=== PATIENT | male | born 1960 | race Caucasian/White ===

== ENCOUNTER 2018-12-20 14:23 | Inpatient (IN) | payer BC, OTHER ==
--- NOTE | 2018-12-20 14:47 | ER Document Report ---
ED Medical Screen (RME) - General Chief Complaint: Shortness Of Breath Stated Complaint: TROUBLE BREATHING Time Seen by Provider: 12/20/18 14:40 Mode of Arrival: Ambulatory Information source: Patient, [facility] Records Notes: 58-year-old male with hypertension, COPD, "kidney issues", lower extremity edema presents with complaint of cough and shortness of breath. Patient states he has had a productive cough for 4 days but shortness of breath for several months. Patient smokes 2 packs of cigarettes per day for greater than 20 years. I have greeted and performed a rapid initial assessment of this patient. A comprehensive ED assessment and evaluation of the patient, analysis of test results and completion of medical decision making process we will be contacted by additional ED providers. PHYSICAL EXAMINATION: Vital signs reviewed-hypoxic GENERAL: Well-appearing, well-nourished and in no acute distress. LUNGS: Diminished breath sounds in all lung jacinto Musculoskeletal: Normal range of motion NEUROLOGICAL: Normal speech, normal gait. PSYCH: Normal mood, normal affect. SKIN: Warm, Dry, normal turgor, no rashes or lesions noted. - HPI Onset: Last week Onset/Duration: Persistent Quality of pain: No pain Severity: None Pain Level: Denies Associated Symptoms: Cough (productive), Leg swelling, Shortness of breath Exacerbated by: Coughing Relieved by: Denies Similar symptoms previously: Yes Recently seen / treated by doctor: Yes - Related Data Smoking: Cigarettes Frequency of alcohol use: None Drug Abuse: None Allergies/Adverse Reactions: Penicillins Allergy (Intermediate, Verified 07/17/14 07:35) Hives Past Medical History - Past Medical History Cardiac Medical History: Reports: Hx Hypertension - Not. office([place])re:BP 150/98;No orders at this time.Pt takes no BP meds. Denies: Hx Coronary Artery Disease, Hx Heart Attack Pulmonary Medical History: Denies: Hx Asthma, Hx Bronchitis, Hx COPD, Hx Pneumonia Neurological Medical History: Denies: Hx Cerebrovascular Accident, Hx Seizures Musculoskeltal Medical History: Denies Hx Arthritis Past Surgical History: Denies: Hx Pacemaker - Immunizations Hx Diphtheria, Pertussis, Tetanus Vaccination: Yes - 2006 Physical Exam - Vital signs Vitals: Temp Pulse Resp BP Pulse Ox 98.4 F 100 16 129/65 H 91 L 12/20/18 14:37 12/20/18 14:37 12/20/18 14:37 12/20/18 14:37 12/20/18 14:37 Course - Vital Signs Vital signs: Temp Pulse Resp BP Pulse Ox 98.4 F 100 16 129/65 H 91 L 12/20/18 14:37 12/20/18 14:37 12/20/18 14:37 12/20/18 14:37 12/20/18 14:37
[2018-12-20] MEDS ORDERED: IPRATROPIUM/ALBUTEROL 0.5-2.5 MG/3 ML AMPUL NEB ONE ×2 (14:49→17:24)
[2018-12-20 15:22] LABS: ABSOLUTE LYMPHOCYTES (AUTO) 0.7 10^3/uL (0.5-4.7); ABSOLUTE MONOCYTES (AUTO) 1.3 10^3/uL (0.1-1.4); ABSOLUTE NEUT (AUTO) 5.9 10^3/uL (1.7-8.2); BASOPHILS % (AUTO) 0.3 % (0-2); HEMOGLOBIN 16.3 g/dL (13.5-17.0); LYMPHOCYTES % (AUTO) 8.5 % (13-45); MEAN CORPUSCULAR HEMOGLOBIN 30.6 pg (27.0-33.4); MEAN CORPUSCULAR HGB CONC 34.7 g/dL (32.0-36.0); MEAN CORPUSCULAR VOLUME 88 fl (80-97); MONOCYTES % (AUTO) 16.2 % (3-13); PLATELET COUNT 133 10^3/uL (150-450); RED BLOOD COUNT 5.34 10^6/uL (4.35-5.55); RED CELL DISTRIBUTION WIDTH 13.6 % (11.5-14.0); TOTAL CELLS COUNTED % (AUTO) 100 %; VENOUS BLOOD BASE EXCESS 4.2 mmol/L; VENOUS BLOOD HCO3 31.6 mmol/L (20-32); VENOUS BLOOD PCO2 56.9 mmHg (35-63); VENOUS BLOOD PH 7.36 (7.30-7.42); WHITE BLOOD COUNT 7.9 10^3/uL (4.0-10.5)
[2018-12-20 15:40] LABS: ALANINE AMINOTRANSFERASE 52 U/L (21-72); ALBUMIN 4.3 g/dL (3.5-5.0); ALKALINE PHOSPHATASE 64 U/L (38-126); ANION GAP 14 (5-19); ASPARTATE AMINO TRANSFERASE 113 U/L (17-59); BILIRUBIN,DIRECT 0.3 mg/dL (0.0-0.4); BILIRUBIN,TOTAL 0.6 mg/dL (0.2-1.3); BLOOD UREA NITROGEN 27 mg/dL (7-20); CARBON DIOXIDE 29 mmol/L (22-30); CHLORIDE 88 mmol/L (98-107); GLUCOSE 146 mg/dL (75-110); POTASSIUM 4.2 mmol/L (3.6-5.0); SODIUM 130.6 mmol/L (137-145); TOTAL PROTEIN 6.9 g/dL (6.3-8.2)
--- NOTE | 2018-12-20 16:38 | RADIOLOGY REPORT (SQ) ---
EXAM DESCRIPTION: CHEST 2 VIEWS COMPLETED DATE/TIME: 12/20/2018 4:15 pm REASON FOR STUDY: Shortness of breath, hypoxia COMPARISON: 11/27/2011. EXAM PARAMETERS: NUMBER OF VIEWS: two views TECHNIQUE: Digital Frontal and Lateral radiographic views of the chest acquired. RADIATION DOSE: NA LIMITATIONS: none FINDINGS: LUNGS AND PLEURA: No opacities, masses or pneumothorax. No pleural effusion. MEDIASTINUM AND HILAR STRUCTURES: No masses or contour abnormalities. HEART AND VASCULAR STRUCTURES: Heart normal size. No evidence for failure. BONES: No acute findings. HARDWARE: None in the chest. OTHER: No other significant finding. IMPRESSION: NO ACUTE RADIOGRAPHIC FINDING IN THE CHEST. TECHNICAL DOCUMENTATION: JOB ID: [id number] [employer]- All Rights Reserved Reading location - IP/workstation name: [email or web address]
[2018-12-20] MEDS ORDERED: NORMAL SALINE 1000 ML 1,000 ML IV ONE (17:14)
[2018-12-20] MEDS ORDERED: PREDNISONE 20 MG TABLET PO ONE ×2 (17:24→23:00)
[2018-12-20] MEDS ORDERED: ALBUTEROL SULFATE 0.083% NEB 2.5 MG/3 ML AMPUL NEB ONE ×3 (17:25→21:52)
--- NOTE | 2018-12-20 18:00 | EKG REPORT ---
SEVERITY:- ABNORMAL ECG - SINUS RHYTHM PROBABLE ANTEROSEPTAL INFARCT, AGE INDETERM : Confirmed by: Arya Ruby MD 20-Dec-2018 17:58:55
[2018-12-20 19:48] LABS: ARTERIAL BLOOD H2CO3 1.34 mmol/L (1.05-1.35); ARTERIAL BLOOD HCO3 27.3 mmol/L (20-24); ARTERIAL BLOOD O2 SATURATION 85.8 % (94-98); ARTERIAL BLOOD PCO2 44.5 mmHg (35-45); ARTERIAL BLOOD PH 7.41 (7.35-7.45); ARTERIAL BLOOD PO2 50.5 mmHg (80-100); ARTERIAL BLOOD TOTAL CO2 28.6 mmol/L (23-27)
[2018-12-20 19:50] LABS: ARTERIAL BLOOD FIO2 ROOM AIR
--- NOTE | 2018-12-20 20:24 | ER Document Report ---
ED Respiratory Problem - General Mode of Arrival: Ambulatory Information source: Patient - HPI Patient complains to provider of: Chest pain, COPD, Cough, Short of breath Onset: Other - 4 days Duration: Worse/persistent Quality of pain: Achy Pain Level: 2 Context: Hx COPD Cough: Productive Sputum color: White At home treatment: Bronchodilators Associated symptoms: Chest pain/discomfort, Cough, Short of breath. denies: Bloody cough, Fever <KE YDER - Last Filed: 12/20/18 20:20> <HOPE SHEPARD - Last Filed: 12/20/18 22:02> - General Chief Complaint: Shortness Of Breath Stated Complaint: TROUBLE BREATHING Time Seen by Provider: 12/20/18 14:40 Primary Care Provider: GUILLERMO VASQUEZ MD [Primary Care Provider] - Follow up as needed Notes: Patient presents complaining of shortness of breath for several months but reports productive cough for the past 4 days. Patient does complain of some chest discomfort with cough only. Patient denies any fever. Patient does have a history of COPD. Patient does continue to smoke 2 packs/day. (KE DYER) - Related Data Allergies/Adverse Reactions: Penicillins Allergy (Intermediate, Verified 12/20/18 16:49) Hives Past Medical History - General Information source: Patient, [facility] Records - Social History Smoking Status: Current Every Day Smoker Chew tobacco use (# tins/day): No Frequency of alcohol use: None Drug Abuse: None Occupation: HV[employer] Family History: Reviewed & Not Pertinent Patient has suicidal ideation: No Patient has homicidal ideation: No - Past Medical History Cardiac Medical History: Reports: Hx Hypercholesterolemia, Hx Hypertension - Not. office([place])re:BP 150/98;No orders at this time.Pt takes no BP meds. Denies: Hx Coronary Artery Disease, Hx Heart Attack Pulmonary Medical History: Reports: Hx COPD Neurological Medical History: Denies: Hx Cerebrovascular Accident, Hx Seizures Renal/ Medical History: Denies: Hx Peritoneal Dialysis Musculoskeletal Medical History: Denies Hx Arthritis Past Surgical History: Reports: Other - cyst removal. Denies: Hx Pacemaker - Immunizations Hx Diphtheria, Pertussis, Tetanus Vaccination: Yes - 2006 <KE DYER - Last Filed: 12/20/18 20:20> Review of Systems - Review of Systems Constitutional: No symptoms reported EENT: No symptoms reported Cardiovascular: Chest pain Respiratory: Cough, Short of breath, Wheezing Gastrointestinal: No symptoms reported Genitourinary: No symptoms reported Male Genitourinary: No symptoms reported Musculoskeletal: No symptoms reported. denies: Back pain Skin: No symptoms reported Hematologic/Lymphatic: No symptoms reported Neurological/Psychological: No symptoms reported <MANISHAKE Valadez - Last Filed: 12/20/18 20:20> Physical Exam - General General appearance: Appears well, Alert In distress: None - HEENT Head: Normocephalic, Atraumatic Eyes: Normal Conjunctiva: Normal Nasal: Normal Mouth/Lips: Normal Mucous membranes: Normal Neck: Normal, Supple. No: Lymphadenopathy - Respiratory Respiratory status: No respiratory distress Chest status: Pain with cough Breath sounds: Nonproductive cough, Rhonchi, Wheezing Chest palpation: Normal - Cardiovascular Rhythm: Regular Heart sounds: S1 appreciated, S2 appreciated Murmur: No - Abdominal Inspection: Normal Distension: No distension Bowel sounds: Normal Tenderness: Nontender - Back Back: Normal, Nontender. No: CVA tenderness - Extremities General upper extremity: Normal inspection, Normal ROM General lower extremity: Edema - 2+ edema bilateral lower extremities, Normal ROM - Neurological Neuro grossly intact: Yes Cognition: Normal Orientation: AAOx4 Kaden Coma Scale Eye Opening: Spontaneous Luckey Coma Scale Verbal: Oriented Luckey Coma Scale Motor: Obeys Commands Luckey Coma Scale Total: 15 - Psychological Associated symptoms: Normal affect, Normal mood - Skin Skin Temperature: Warm Skin Moisture: Dry Skin Color: Normal <KE DYER - Last Filed: 12/20/18 20:20> - Vital signs Vitals: Temp Pulse Resp BP Pulse Ox 98.4 F 100 16 129/65 H 91 L 12/20/18 14:37 12/20/18 14:37 12/20/18 14:37 12/20/18 14:37 12/20/18 14:37 Course - Laboratory Result Diagrams: 12/20/18 15:05 12/20/18 15:05 <KE DYER - Last Filed: 12/20/18 20:20> - Laboratory Result Diagrams: 12/20/18 15:05 12/20/18 15:05 <HOPE SHEPARD - Last Filed: 12/20/18 22:02> - Re-evaluation Re-evalutation: 12/20/18 18:[address] Stone and patient presentation. Recommends obtaining ABG as well as d-dimer test. 12/20/18 20:00 Patient with elevated d-dimer. CTA added on. Report and handoff given to Nicky SERRANO. (KE DYER) 12/20/18 22:00 Patient CTA shows no signs of pulmonary embolus. Also shows no signs of consolidation or pneumonia. Patient was placed on oxygen via nursing staff due to a drop in his oxygen saturation upon movement to 86%. Patient is currently at 91% on 2 L of oxygen. Upon my assessment he does have expiratory wheezes heard in all jacinto. Magnesium and continued albuterol treatments were ordered. Discussed this case with hospitalist Dr. Krzysztof Leyva who will accept the patient for a COPD exacerbation. (HOPE SHEPARD) - Vital Signs Vital signs: Temp Pulse Resp BP Pulse Ox 98.4 F 100 31 H 112/81 90 L 12/20/18 14:37 12/20/18 14:37 12/20/18 20:01 12/20/18 20:00 12/20/18 20:00 - Laboratory Laboratory results interpreted by me: 12/20/18 12/20/18 12/20/18 15:05 15:05 15:05 Plt Count 133 L Lymphocytes % 8.5 L Monocytes % 16.2 H D-Dimer 0.79 H ABG pO2 ABG HCO3 ABG Total CO2 ABG O2 Saturation Sodium 130.6 L Chloride 88 L BUN 27 H Glucose 146 H AST 113 H 12/20/18 19:35 Plt Count Lymphocytes % Monocytes % D-Dimer ABG pO2 50.5 L ABG HCO3 27.3 H ABG Total CO2 28.6 H ABG O2 Saturation 85.8 L Sodium Chloride BUN Glucose AST Discharge <KE DYER - Last Filed: 12/20/18 20:20> - Discharge Admitting Provider: Hospitalist - Dr. Leyva Unit Admitted: Telemetry <HOPE SHEPARD - Last Filed: 12/20/18 22:02> - Discharge Clinical Impression: COPD exacerbation Condition: Stable Disposition: ADMITTED OBSERVATION Referrals: GUILLERMO VASQUEZ MD [Primary Care Provider] - Follow up as needed
[2018-12-20] MEDS ORDERED: MAGNESIUM SULFATE/D5W 1 GM/100 ML RTUPB IV ONE (21:22)
--- NOTE | 2018-12-20 21:45 | RADIOLOGY REPORT (SQ) ---
EXAM DESCRIPTION: CT CHEST ANGIOGRAPHY WITHOUT THEN WITH IV CONTRAST, three-dimensional reconstructions COMPLETED DATE/TME: 12/20/2018 19:58 CLINICAL HISTORY: 58 years, Male, sob, elevated dimer This exam was performed according to our departmental dose-optimization program which includes automated exposure control, adjustment of the mA and/or kVp according to patient size and/or use of iterative reconstruction technique where applicable. FINDINGS: Pulmonary arteries are well opacified. No significant filling defects in the pulmonary arterial tree to suggest acute pulmonary embolism. Aorta is within normal limits with no evidence for dissection. No significant mediastinal, hilar or axillary lymphadenopathy. No pleural or pericardial effusions. Visualized upper abdominal organs are within normal limits. Evaluation of the lung parenchyma demonstrates trachea and major airways to be patent. No suspicious lung nodules or masses. Moderate diffuse emphysematous changes. No consolidations to suggest pneumonia. IMPRESSION: No acute pulmonary embolism. No acute pathology.
[2018-12-20] MEDS ORDERED: GUAIFENESIN SYRP 200 MG/10 ML UDC PO PRN (22:00)
[2018-12-20] MEDS ORDERED: IPRATROPIUM/ALBUTEROL 0.5-2.5 MG/3 ML AMPUL NEB PRN (22:00)
[2018-12-20] MEDS ORDERED: ACETAMINOPHEN 325 MG TABLET PO PRN (22:00)
[2018-12-20] MEDS ORDERED: AZITHROMYCIN INJ 500 MG VIAL IV PRN (22:35)
[2018-12-20] MEDS ORDERED: FLUTICASONE NASAL SPRAY 50 MCG/SPRY 120 SPRAY/16 GM NASL ONE (23:00)
[2018-12-20] MEDS ORDERED: CEFEPIME 2 GM/D5W RTU 2 GM/50 ML RTUPB IV ONE (23:00)
[2018-12-20] MEDS ORDERED: HEPARIN SOD (PORCINE) 5,000 UNIT/ML 1 ML SYRINGE SUBCUT ONE (23:00)
[2018-12-20] MEDS ORDERED: LACTULOSE SYRUP 20 GM/30 ML UDCUP PO ONE (23:30)
[2018-12-21] MEDS ORDERED: AZITHROMYCIN 500 MG in DEXTROSE 5%-WATER 250 ML IV ONE ×2
[2018-12-21] MEDS ORDERED: CHLORPHENIRAMINE MALEATE 4 MG TABLET ONE (00:31)
[2018-12-21] MEDS ORDERED: AZITHROMYCIN INJ 500 MG VIAL IV ONE (00:32)
[2018-12-21] MEDS: CHLORPHENIRAMINE MALEATE 4 MG TABLET PO SCH ×4 (01:51→12:25)
[2018-12-21] MEDS: IPRATROPIUM/ALBUTEROL 0.5-2.5 MG/3 ML AMPUL NEB SCH ×4 (02:12→19:51)
--- NOTE | 2018-12-21 05:55 | PDOC H&P ---
History of Present Illness Admission Date/PCP: 12/20/18 22:12 GUILLERMO VASQUEZ MD Patient complains of: Shortness of breath History of Present Illness: ROXY WASHINGTON is a 58 year old male with a past medical history of hypertension, COPD, obstructive sleep apnea and tobacco dependence of 2 packs/day. He presents with 4 days of shortness of breath associated with wheeze and nonproductive cough. in the emergency department he is found to have hypoxia of 87% on room air with global wheeze, hypoxia with a PO2 of 50 unremarkable CTA of the chest. He denies rhinorrhea, sore throat or GERD. He denies chest pain nausea or vomiting. He receives supplemental oxygen, steroids, albuterol and Atrovent then referred to the hospitalist for admission. Patient denies recent changes in medications Past Medical History Cardiac Medical History: Reports: Hyperlipidema, Hypertension - Not. office([place])re:BP 150/98;No orders at this time.Pt takes no BP meds. Denies: Coronary Artery Disease, Myocardial Infarction Pulmonary Medical History: Reports: Chronic Obstructive Pulmonary Disease (COPD) Denies: Asthma, Bronchitis, Pneumonia Neurological Medical History: Denies: Seizures Musculoskeltal Medical History: Denies: Arthritis Psychiatric Medical History: Reports: Tobacco Dependency Hematology: Denies: Anemia Past Surgical History Past Surgical History: Reports: Other - cyst removal Denies: Pacemaker Social History Information Source: Patient Smoking Status: Current Every Day Smoker Cigarettes Packs Per Day: 2 Frequency of Alcohol Use: None Drugs: None - Advance Directive Resuscitation Status: Full Code Family History Family History: COPD, Hypertension Parental Family History Reviewed: Yes Children Family History Reviewed: Yes Sibling(s) Family History Reviewed.: Yes Medication/Allergy Home Medications: Lisinopril 20 mg PO DAILY 07/17/14 Allergies/Adverse Reactions: Penicillins Allergy (Intermediate, Verified 12/20/18 16:49) Hives Review of Systems Constitutional: ABSENT: chills, fever(s), headache(s), weight gain, weight loss Eyes: ABSENT: visual disturbances Ears: ABSENT: hearing changes Cardiovascular: ABSENT: chest pain, dyspnea on exertion, edema, orthropnea, palpitations Respiratory: ABSENT: cough, hemoptysis Gastrointestinal: ABSENT: abdominal pain, constipation, diarrhea, hematemesis, hematochezia, nausea, vomiting Genitourinary: ABSENT: dysuria, hematuria Musculoskeletal: ABSENT: joint swelling Integumentary: ABSENT: rash, wounds Neurological: ABSENT: abnormal gait, abnormal speech, confusion, dizziness, focal weakness, syncope Psychiatric: ABSENT: anxiety, depression, homidical ideation, suicidal ideation Endocrine: ABSENT: cold intolerance, heat intolerance, polydipsia, polyuria Hematologic/Lymphatic: ABSENT: easy bleeding, easy bruising Physical Exam Vital Signs: Temp Pulse Resp BP Pulse Ox 98.1 F 104 H 19 134/73 H 95 12/21/18 03:26 12/21/18 03:26 12/21/18 03:26 12/21/18 03:26 12/21/18 03:26 Intake & Output 12/19/18 12/20/18 12/21/18 11:59 11:59 11:59 Intake Total 2550 Balance 2550 Weight 94.5 kg General appearance: PRESENT: cooperative, obese, severe distress Head exam: PRESENT: atraumatic, normocephalic Eye exam: PRESENT: conjunctiva pink, EOMI, PERRLA. ABSENT: scleral icterus Ear exam: PRESENT: normal external ear exam Mouth exam: PRESENT: moist, tongue midline Neck exam: ABSENT: carotid bruit, JVD, lymphadenopathy, thyromegaly Respiratory exam: PRESENT: accessory muscle use, crackles, decreased breath sounds, prolonged expiratory phas, retraction, symmetrical, tachypnea, wheezes. ABSENT: rhonchi Cardiovascular exam: PRESENT: RRR, tachycardia. ABSENT: diastolic murmur, rubs, systolic murmur Pulses: PRESENT: normal dorsalis pedis pul Vascular exam: PRESENT: normal capillary refill GI/Abdominal exam: PRESENT: normal bowel sounds, soft. ABSENT: distended, guarding, mass, organolmegaly, rebound, tenderness Rectal exam: PRESENT: deferred Extremities exam: PRESENT: full ROM. ABSENT: calf tenderness, clubbing, pedal edema Neurological exam: PRESENT: alert, awake, oriented to person, oriented to place, oriented to time, oriented to situation, CN II-XII grossly intact. ABSENT: motor sensory deficit Psychiatric exam: PRESENT: appropriate affect, normal mood. ABSENT: homicidal ideation, suicidal ideation Skin exam: PRESENT: dry, intact, warm. ABSENT: cyanosis, rash Results Laboratory Results: 12/20/18 15:05 12/20/18 15:05 12/20/18 12/20/18 12/20/18 15:05 15:05 15:05 WBC 7.9 RBC 5.34 Hgb 16.3 Hct 47.0 MCV 88 MCH 30.6 MCHC 34.7 RDW 13.6 Plt Count 133 L Seg Neutrophils % 75.0 Lymphocytes % 8.5 L Monocytes % 16.2 H Eosinophils % 0.0 Basophils % 0.3 Absolute Neutrophils 5.9 Absolute Lymphocytes 0.7 Absolute Monocytes 1.3 Absolute Eosinophils 0.0 Absolute Basophils 0.0 Carbonic Acid HCO3/H2CO3 Ratio ABG pH ABG pCO2 ABG pO2 ABG HCO3 ABG O2 Saturation ABG Base Excess VBG pH 7.36 VBG pCO2 56.9 VBG HCO3 31.6 VBG Base Excess 4.2 FiO2 Sodium 130.6 L Potassium 4.2 Chloride 88 L Carbon Dioxide 29 Anion Gap 14 BUN 27 H Creatinine 1.20 Est GFR ( Amer) > 60 Est GFR (Non-Af Amer) > 60 Glucose 146 H Calcium 9.0 Total Bilirubin 0.6 AST 113 H ALT 52 Alkaline Phosphatase 64 Total Protein 6.9 Albumin 4.3 12/20/18 19:35 WBC RBC Hgb Hct MCV MCH MCHC RDW Plt Count Seg Neutrophils % Lymphocytes % Monocytes % Eosinophils % Basophils % Absolute Neutrophils Absolute Lymphocytes Absolute Monocytes Absolute Eosinophils Absolute Basophils Carbonic Acid 1.34 HCO3/H2CO3 Ratio 20:1 ABG pH 7.41 ABG pCO2 44.5 ABG pO2 50.5 L ABG HCO3 27.3 H ABG O2 Saturation 85.8 L ABG Base Excess 2.0 VBG pH VBG pCO2 VBG HCO3 VBG Base Excess FiO2 ROOM AIR Sodium Potassium Chloride Carbon Dioxide Anion Gap BUN Creatinine Est GFR ( Amer) Est GFR (Non-Af Amer) Glucose Calcium Total Bilirubin AST ALT Alkaline Phosphatase Total Protein Albumin 12/20/18 12/20/18 15:05 15:05 Troponin I 0.013 NT-Pro-B Natriuret Pep 324 Impressions: Chest X-Ray 12/20/18 14:47 IMPRESSION: NO ACUTE RADIOGRAPHIC FINDING IN THE CHEST. Chest/Abdomen CTA 12/20/18 19:58 IMPRESSION: No acute pulmonary embolism. No acute pathology. Assessment & Plan - Diagnosis (1) Acute and chronic respiratory failure with hypoxia Is this a current diagnosis for this admission?: Yes Plan: Appears likely secondary to acute on chronic bronchitis. Negative CTA, supplemental oxygen, steroids, PT with flutter valve, BiPAP as needed (2) Acute bronchitis Is this a current diagnosis for this admission?: Yes Plan: Please see #1 empiric antibiotics initiated (3) Tobacco abuse Is this a current diagnosis for this admission?: Yes Plan: Tobacco Dependence patient received tobacco cessation counseling and offered nicotine replacement options (4) COPD exacerbation Is this a current diagnosis for this admission?: Yes Plan: Prednisone, empiric antibiotics, supplemental oxygen albuterol and Atrovent. - Time Time Spent: 50 to 70 Minutes - Inpatient Certification Medical Necessity: Need Close Monitoring Due to Risk of Patient Decompensation
[2018-12-21 06:08] LABS: HEMATOCRIT 46.2 % (37.9-51.0); HEMOGLOBIN 15.9 g/dL (13.5-17.0); MEAN CORPUSCULAR HEMOGLOBIN 30.3 pg (27.0-33.4); MEAN CORPUSCULAR HGB CONC 34.3 g/dL (32.0-36.0); MEAN CORPUSCULAR VOLUME 88 fl (80-97); PLATELET COUNT 128 10^3/uL (150-450); RED BLOOD COUNT 5.23 10^6/uL (4.35-5.55); RED CELL DISTRIBUTION WIDTH 13.9 % (11.5-14.0); WHITE BLOOD COUNT 8.2 10^3/uL (4.0-10.5)
[2018-12-21] MEDS: HEPARIN SOD (PORCINE) 5,000 UNIT/ML 1 ML SYRINGE SUBCUT SCH ×3 (06:11→22:42)
[2018-12-21 06:29] LABS: ANION GAP 14 (5-19); BLOOD UREA NITROGEN 25 mg/dL (7-20); CARBON DIOXIDE 25 mmol/L (22-30); CHLORIDE 94 mmol/L (98-107); GLUCOSE 172 mg/dL (75-110); POTASSIUM 4.2 mmol/L (3.6-5.0); SODIUM 132.6 mmol/L (137-145)
[2018-12-21 07:42] LABS: ABSOLUTE LYMPHOCYTES# (MANUAL) 0.3 10^3/uL (0.5-4.7); ABSOLUTE MONOCYTES # (MANUAL) 0.7 10^3/uL (0.1-1.4); ABSOLUTE NEUTROPHILS# (MANUAL) 7.2 10^3/uL (1.7-8.2); BASOPHILS % (MANUAL) 0 % (0-2); EOSINOPHILS % (MANUAL) 0 % (0-6); LYMPHOCYTES % (MANUAL) 4 % (13-45); MONOCYTES % (MANUAL) 8 % (3-13); PLATELET COMMENT DECREASED; RBC MORPHOLOGY COMMENT NORMO-CYTIC/CHROMIC; SEGMENTED NEUTROPHILS % (MAN) 88 % (42-78); TOTAL CELLS COUNTED 100
[2018-12-21] MEDS: CEFEPIME 2 GM/D5W RTU 2 GM/50 ML RTUPB IV SCH ×2 (09:57→22:42)
[2018-12-21] MEDS ORDERED: PREDNISONE 20 MG TABLET PO SCH (10:00)
[2018-12-21] MEDS: FLUTICASONE NASAL SPRAY 50 MCG/SPRY 120 SPRAY/16 GM NASL SCH ×2 (10:54→22:42)
--- NOTE | 2018-12-21 14:36 | PDOC PROGRESS REPORT ---
Subjective Progress Note for:: 12/21/18 Subjective:: This is a 58 yr old male with a PMH of hypertension, COPD, obstructive sleep apnea and chronic heavy smoker (2 packs/day) who presented with 4 days of shortness of breath associated with wheeze and nonproductive cough. He was admitted for COPD exacerbation. In the ER, he was hypoxic at 87% on room air. No acute event overnight. This morning, he says he is still short of breath but this has improved from yesterday. He is currently saturating well on 2 lpm via NC. Reason For Visit: ACUTE ON CHRONIC RESPIRATORY FAILURE,ACUTE Physical Exam Vital Signs: Temp Pulse Resp BP Pulse Ox 98.1 F 92 16 99/75 L 90 L 12/21/18 12:02 12/21/18 14:00 12/21/18 13:33 12/21/18 12:02 12/21/18 13:33 Intake & Output 12/20/18 12/21/18 12/22/18 06:59 06:59 06:59 Intake Total 2800 50 Balance 2800 50 Weight 208 lb 5.389 oz General appearance: PRESENT: no acute distress, well-developed, well-nourished Head exam: PRESENT: atraumatic, normocephalic Eye exam: PRESENT: conjunctiva pink, EOMI, PERRLA. ABSENT: scleral icterus Ear exam: PRESENT: normal external ear exam Mouth exam: PRESENT: moist, tongue midline Neck exam: ABSENT: carotid bruit, JVD, lymphadenopathy, thyromegaly Respiratory exam: PRESENT: wheezes. ABSENT: rales, rhonchi Cardiovascular exam: PRESENT: RRR. ABSENT: diastolic murmur, rubs, systolic murmur Pulses: PRESENT: normal dorsalis pedis pul GI/Abdominal exam: PRESENT: normal bowel sounds, soft. ABSENT: distended, guarding, mass, organolmegaly, rebound, tenderness Rectal exam: PRESENT: deferred Neurological exam: PRESENT: alert, awake, oriented to person, oriented to place, oriented to time, oriented to situation, CN II-XII grossly intact. ABSENT: motor sensory deficit Results Laboratory Results: 12/21/18 05:18 12/21/18 05:18 12/20/18 12/20/18 12/20/18 15:05 15:05 15:05 WBC 7.9 RBC 5.34 Hgb 16.3 Hct 47.0 MCV 88 MCH 30.6 MCHC 34.7 RDW 13.6 Plt Count 133 L Seg Neutrophils % 75.0 Lymphocytes % 8.5 L Monocytes % 16.2 H Eosinophils % 0.0 Basophils % 0.3 Absolute Neutrophils 5.9 Absolute Lymphocytes 0.7 Absolute Monocytes 1.3 Absolute Eosinophils 0.0 Absolute Basophils 0.0 Carbonic Acid HCO3/H2CO3 Ratio ABG pH ABG pCO2 ABG pO2 ABG HCO3 ABG O2 Saturation ABG Base Excess VBG pH 7.36 VBG pCO2 56.9 VBG HCO3 31.6 VBG Base Excess 4.2 FiO2 Sodium 130.6 L Potassium 4.2 Chloride 88 L Carbon Dioxide 29 Anion Gap 14 BUN 27 H Creatinine 1.20 Est GFR ( Amer) > 60 Est GFR (Non-Af Amer) > 60 Glucose 146 H Calcium 9.0 Total Bilirubin 0.6 AST 113 H ALT 52 Alkaline Phosphatase 64 Total Protein 6.9 Albumin 4.3 12/20/18 12/21/18 12/21/18 19:35 05:18 05:18 WBC 8.2 RBC 5.23 Hgb 15.9 Hct 46.2 MCV 88 MCH 30.3 MCHC 34.3 RDW 13.9 Plt Count 128 L Seg Neutrophils % Not Reportable Lymphocytes % Not Reportable Monocytes % Not Reportable Eosinophils % Not Reportable Basophils % Not Reportable Absolute Neutrophils Not Reportable Absolute Lymphocytes Not Reportable Absolute Monocytes Not Reportable Absolute Eosinophils Not Reportable Absolute Basophils Not Reportable Carbonic Acid 1.34 HCO3/H2CO3 Ratio 20:1 ABG pH 7.41 ABG pCO2 44.5 ABG pO2 50.5 L ABG HCO3 27.3 H ABG O2 Saturation 85.8 L ABG Base Excess 2.0 VBG pH VBG pCO2 VBG HCO3 VBG Base Excess FiO2 ROOM AIR Sodium 132.6 L Potassium 4.2 Chloride 94 L Carbon Dioxide 25 Anion Gap 14 BUN 25 H Creatinine 1.11 Est GFR ( Amer) > 60 Est GFR (Non-Af Amer) > 60 Glucose 172 H Calcium 9.0 Total Bilirubin AST ALT Alkaline Phosphatase Total Protein Albumin 12/20/18 12/20/18 15:05 15:05 Troponin I 0.013 NT-Pro-B Natriuret Pep 324 Impressions: Chest X-Ray 12/20/18 14:47 IMPRESSION: NO ACUTE RADIOGRAPHIC FINDING IN THE CHEST. Chest/Abdomen CTA 12/20/18 19:58 IMPRESSION: No acute pulmonary embolism. No acute pathology. Assessment & Plan - Diagnosis (1) Acute and chronic respiratory failure with hypoxia Is this a current diagnosis for this admission?: Yes Plan: Currnelty on 2 lpm via NC. He is not on home O2. Will do a 6 minute walk test when he is close to being discharged. (2) COPD exacerbation Is this a current diagnosis for this admission?: Yes Plan: Continue steroids and breathing treatments. Increase prednisone ot 40 mg bid. He is not on any inhaler for COPD at home. (3) Tobacco abuse Is this a current diagnosis for this admission?: Yes Plan: Counseled on smoking cessation. He says he is gradually cutting down on his smoking and does not think he needs adjunctive medications to help quit for now. - Time Time Spent with patient: 25-34 minutes
[2018-12-21] MEDS ORDERED: CHLORPHENIRAMINE MALEATE 4 MG TABLET PO SCH (16:00)
[2018-12-21] MEDS: PREDNISONE 20 MG TABLET PO SCH (17:21)
[2018-12-21] MEDS: AZITHROMYCIN 500 MG in DEXTROSE 5%-WATER 250 ML IV SCH (17:23)
[2018-12-21] MEDS: ZOLPIDEM TARTRATE 5 MG TABLET PO PRN (22:43)
[2018-12-22] MEDS: IPRATROPIUM/ALBUTEROL 0.5-2.5 MG/3 ML AMPUL NEB SCH ×4 (01:55→19:53)
[2018-12-22] MEDS: HEPARIN SOD (PORCINE) 5,000 UNIT/ML 1 ML SYRINGE SUBCUT SCH ×3 (05:30→21:29)
[2018-12-22] MEDS: FLUTICASONE NASAL SPRAY 50 MCG/SPRY 120 SPRAY/16 GM NASL SCH ×2 (09:40→21:29)
[2018-12-22] MEDS: PREDNISONE 20 MG TABLET PO SCH ×2 (09:40→17:58)
[2018-12-22] MEDS: CEFEPIME 2 GM/D5W RTU 2 GM/50 ML RTUPB IV SCH ×2 (09:41→21:29)
--- NOTE | 2018-12-22 15:33 | PDOC PROGRESS REPORT ---
Subjective Progress Note for:: 12/22/18 Subjective:: This is a 58 yr old male with a PMH of hypertension, COPD, obstructive sleep apnea and chronic heavy smoker (2 packs/day) who presented with 4 days of shortness of breath associated with wheeze and nonproductive cough. He was admitted for COPD exacerbation. In the ER, he was hypoxic at 87% on room air. 12/21: This morning, he says he is still short of breath but this has improved from yesterday. 12/22: No acute event overnight. Patient says his SOB continue to improve but he is not at baseline yet. He does have bilateral wheezing this morning. He is currently saturating well on 2 lpm via NC. Reason For Visit: ACUTE ON CHRONIC RESPIRATORY FAILURE, Physical Exam Vital Signs: Temp Pulse Resp BP Pulse Ox 98.1 F 84 18 133/79 H 92 12/22/18 12:00 12/22/18 14:20 12/22/18 14:20 12/22/18 12:00 12/22/18 14:20 Intake & Output 12/21/18 12/22/18 12/23/18 06:59 06:59 06:59 Intake Total 2800 645 50 Balance 2800 645 50 Weight 208 lb 5.389 oz General appearance: PRESENT: no acute distress, well-developed, well-nourished Head exam: PRESENT: atraumatic, normocephalic Eye exam: PRESENT: conjunctiva pink, EOMI, PERRLA. ABSENT: scleral icterus Ear exam: PRESENT: normal external ear exam Mouth exam: PRESENT: moist, tongue midline Neck exam: ABSENT: carotid bruit, JVD, lymphadenopathy, thyromegaly Respiratory exam: PRESENT: wheezes. ABSENT: rales, rhonchi Cardiovascular exam: PRESENT: RRR. ABSENT: diastolic murmur, rubs, systolic murmur Pulses: PRESENT: normal dorsalis pedis pul GI/Abdominal exam: PRESENT: normal bowel sounds, soft. ABSENT: distended, guarding, mass, organolmegaly, rebound, tenderness Rectal exam: PRESENT: deferred Neurological exam: PRESENT: alert, awake, oriented to person, oriented to place, oriented to time, oriented to situation, CN II-XII grossly intact. ABSENT: motor sensory deficit Results Laboratory Results: 12/21/18 05:18 12/21/18 05:18 12/20/18 12/20/18 15:05 15:05 Troponin I 0.013 NT-Pro-B Natriuret Pep 324 Impressions: Chest X-Ray 12/20/18 14:47 IMPRESSION: NO ACUTE RADIOGRAPHIC FINDING IN THE CHEST. Chest/Abdomen CTA 12/20/18 19:58 IMPRESSION: No acute pulmonary embolism. No acute pathology. Assessment & Plan - Diagnosis (1) Acute and chronic respiratory failure with hypoxia Is this a current diagnosis for this admission?: Yes Plan: Improving. Currently on 2 lpm via NC. He is not on home O2. Will do a 6 minute walk test when he is close to being discharged. (2) COPD exacerbation Is this a current diagnosis for this admission?: Yes Plan: 12/21: Continue steroids and breathing treatments. Increase prednisone to 40 mg bid. He is not on any inhaler for COPD at home. 12/22: Continue steroids and breathing treatments. (3) Tobacco abuse Is this a current diagnosis for this admission?: Yes Plan: Counseled on smoking cessation. He says he is gradually cutting down on his smoking and does not think he needs adjunctive medications to help quit for now. - Time Time Spent with patient: 15-24 minutes
[2018-12-22] MEDS: AZITHROMYCIN 500 MG in DEXTROSE 5%-WATER 250 ML IV SCH (17:58)
[2018-12-22] MEDS: ZOLPIDEM TARTRATE 5 MG TABLET PO PRN (21:29)
[2018-12-23] MEDS: IPRATROPIUM/ALBUTEROL 0.5-2.5 MG/3 ML AMPUL NEB SCH ×3 (02:29→13:24)
[2018-12-23] MEDS: HEPARIN SOD (PORCINE) 5,000 UNIT/ML 1 ML SYRINGE SUBCUT SCH ×2 (05:16→13:27)
[2018-12-23] MEDS: CEFEPIME 2 GM/D5W RTU 2 GM/50 ML RTUPB IV SCH (09:49)
[2018-12-23] MEDS: FLUTICASONE NASAL SPRAY 50 MCG/SPRY 120 SPRAY/16 GM NASL SCH (09:50)
[2018-12-23] MEDS: PREDNISONE 20 MG TABLET PO SCH (09:50)
[2018-12-23] MEDS ORDERED: FUROSEMIDE 20 MG TABLET PO SCH (10:30)
--- NOTE | 2018-12-23 16:06 | PDOC DISCHARGE SUMMARY ---
General - Admit/Disc Date/PCP Admission Date/Primary Care Provider: 12/21/18 12:32 GUILLERMO VASQUEZ MD Discharge Date: 12/23/18 - Discharge Diagnosis (1) Acute and chronic respiratory failure with hypoxia Is this a current diagnosis for this admission?: Yes (2) COPD exacerbation Is this a current diagnosis for this admission?: Yes (3) Tobacco abuse Is this a current diagnosis for this admission?: Yes - Additional Information Resuscitation Status: Full Code Prescriptions: Fluticasone/Salmeterol [Advair 100-50 Diskus 14 Dose/Diskus] 1 inh IH Q12H #1 inhaler Ipratropium/Albuterol Sulfate [Duoneb 3 ml Ampul] 3 ml NEB RTQ6HP PRN #20 vial.neb PRN Reason: for SOB or wheezing Prednisone [Deltasone 20 mg Tablet] 20 mg PO BID 5 Days #10 tablet Tiotropium [place] [Spiriva Handihaler 5 Cap/Kit (18 Mcg/Cap)] 1 cap IH DAILY #5 capsule Home Medications: Furosemide [Lasix 20 mg Tablet] 20 mg PO QAM 12/21/18 Hydrochlorothiazide [Hydrodiuril 12.5 mg Tablet] 12.5 mg PO QAM 12/21/18 Lisinopril [Prinivil 10 mg Tablet] 10 mg PO QHS 12/21/18 Acetaminophen [Tylenol 325 mg Tablet] 650 mg PO Q4HP PRN tablet 12/23/18 Fluticasone Propionate [Flonase Nasal [place] 50 Mcg/[place] 16 gm] 2 spray NASL Q12 spray.pump 12/23/18 Fluticasone/Salmeterol [Advair 100-50 Diskus 14 Dose/Diskus] 1 inh IH Q12H #1 inhaler 12/23/18 Ipratropium/Albuterol Sulfate [Duoneb 3 ml Ampul] 3 ml NEB RTQ6HP PRN #20 vial.neb 12/23/18 Prednisone [Deltasone 20 mg Tablet] 20 mg PO BID 5 Days #10 tablet 12/23/18 Tiotropium [place] [Spiriva Handihaler 5 Cap/Kit (18 Mcg/Cap)] 1 cap IH DAILY #5 capsule 12/23/18 History of Present Illness History of Present Illness: Admitting hospitalist's H&P: ROXY WASHINGTON is a 58 year old male with a past medical history of hypertension, COPD, obstructive sleep apnea and tobacco dependence of 2 packs/day. He presents with 4 days of shortness of breath associated with whee ze and nonproductive cough. In the emergency department he is found to have hypoxia of 87% on room air with global wheeze, hypoxia with a PO2 of 50 unremarkable CTA of the chest. He denies rhinorrhea, sore throat or GERD. He denies chest pain nausea or vomiting. He receives supplemental oxygen, steroids, albuterol and Atrovent then referred to the hospitalist for admission. Patient denies recent changes in medications. Hospital Course Hospital Course: This is a 58 yr old male with a PMH of hypertension, COPD, obstructive sleep apnea and chronic heavy smoker (2 packs/day) who presented with 4 days of shortness of breath associated with wheeze and nonproductive cough. He was admitted for COPD exacerbation. In the ER, he was hypoxic at 87% on room air. He was started on steroids and breathing treatments. He did have gradual improvement and returned to his baseline. He qualified for home O2. He is not on any inhaler for COPD at home. He will be discharged on 5 more days of prendisone and was also given scripts for Advair and Spiriva and prn breathing treatments. He was also given a confirmed appt with pulmonology, Dr. Henriquez. Physical Exam Vital Signs: Temp Pulse Resp BP Pulse Ox 98.2 F 93 20 126/78 H 90 L 12/23/18 12:00 12/23/18 14:00 12/23/18 13:24 12/23/18 12:00 12/23/18 13:24 Intake & Output 12/22/18 12/23/18 12/24/18 06:59 06:59 06:59 Intake Total 645 1150 50 Balance 645 1150 50 Weight 208 lb 5.389 oz General appearance: PRESENT: no acute distress, well-developed, well-nourished Head exam: PRESENT: atraumatic, normocephalic Eye exam: PRESENT: conjunctiva pink, EOMI, PERRLA. ABSENT: scleral icterus Ear exam: PRESENT: normal external ear exam Mouth exam: PRESENT: moist, tongue midline Neck exam: ABSENT: carotid bruit, JVD, lymphadenopathy, thyromegaly Respiratory exam: PRESENT: clear to auscultation gio. ABSENT: rales, rhonchi, wheezes Cardiovascular exam: PRESENT: RRR. ABSENT: diastolic murmur, rubs, systolic murmur Pulses: PRESENT: normal dorsalis pedis pul GI/Abdominal exam: PRESENT: normal bowel sounds, soft. ABSENT: distended, guarding, mass, organolmegaly, rebound, tenderness Rectal exam: PRESENT: deferred Neurological exam: PRESENT: alert, awake, oriented to person, oriented to place, oriented to time, oriented to situation, CN II-XII grossly intact. ABSENT: motor sensory deficit Results Laboratory Results: 12/21/18 05:18 12/21/18 05:18 12/20/18 12/20/18 15:05 15:05 Troponin I 0.013 NT-Pro-B Natriuret Pep 324 Impressions: Chest X-Ray 12/20/18 14:47 IMPRESSION: NO ACUTE RADIOGRAPHIC FINDING IN THE CHEST. Chest/Abdomen CTA 12/20/18 19:58 IMPRESSION: No acute pulmonary embolism. No acute pathology. Qualifiers - * PATIENT BEING DISCHARGED WITH ANY OF THE FOLLOWING DIAGNOSIS: No
[2018-12-23 16:49] VITALS: BP 126/78
== END 2018-12-23 18:58 | disposition home or self-care (01) | DRG 189 ==
LOC: ER 14:23 → EH 22:12 → 4W 23:50 → INTOOBSV 12-21 12:32 → OBSVTOIN 12-21 12:32
PROVIDERS: ADMIT Internal Medicine; ATTEND Internal Medicine
DX: J96.21 Acute and chronic respiratory failure with hypoxia (principal); J44.1 Chronic obstructive pulmonary disease with (acute) exacerbation; J44.0 Chronic obstructive pulmonary disease with (acute) lower respiratory infection; I10 Essential (primary) hypertension; J20.9 Acute bronchitis, unspecified; G47.33 Obstructive sleep apnea (adult) (pediatric); R07.9 Chest pain, unspecified; F17.210 Nicotine dependence, cigarettes, uncomplicated
CPT/HCPCS: 36415; 71046; 71275; 80048; 80053; 82803; 83880; 84484; 85025; 85379; 93005; 93010; 94640; 94667; 94668; 94799; 96360; 99285; G0378; J0456; J0692; J1644; J3475; J3490; J7030; J7060; J7512; J7620

== ENCOUNTER → 2019-07-01 | Outpatient (CLI) | payer OTHER ==
[2019-07-01 10:20] LABS: HEMATOCRIT 46.3 % (37.9-51.0); HEMOGLOBIN 15.7 g/dL (13.5-17.0); MEAN CORPUSCULAR HEMOGLOBIN 29.3 pg (27.0-33.4); MEAN CORPUSCULAR HGB CONC 33.8 g/dL (32.0-36.0); MEAN CORPUSCULAR VOLUME 87 fl (80-97); PLATELET COUNT 180 10^3/uL (150-450); RED BLOOD COUNT 5.34 10^6/uL (4.35-5.55); RED CELL DISTRIBUTION WIDTH 13.9 % (11.5-14.0)
[2019-07-01 10:49] LABS: ALBUMIN 3.8 g/dL (3.5-5.0); ALKALINE PHOSPHATASE 119 U/L (38-126); ANION GAP 12 (5-19); ASPARTATE AMINO TRANSFERASE 34 U/L (17-59); BILIRUBIN,DIRECT 0.3 mg/dL (0.0-0.4); BILIRUBIN,TOTAL 0.5 mg/dL (0.2-1.3); BLOOD UREA NITROGEN 23 mg/dL (7-20); CALCIUM 8.8 mg/dL (8.4-10.2); CARBON DIOXIDE 31 mmol/L (22-30); CHLORIDE 91 mmol/L (98-107); CHOLESTEROL 176.97 mg/dL (0-200); POTASSIUM 3.4 mmol/L (3.6-5.0); TOTAL PROTEIN 6.5 g/dL (6.3-8.2)
[2019-07-01 10:59] LABS: DIRECT LDL 72 mg/dL (<100)
[2019-07-01 11:05] LABS: TRIGLYCERIDES 653 mg/dL (<150)
[2019-07-01 11:09] LABS: GLUCOSE 401 mg/dL (75-110)
== END ==
LOC: LAB 09:46
PROVIDERS: ATTEND Internal Medicine Cardiovascular Disease
DX: I11.0 Hypertensive heart disease with heart failure (principal); I50.9 Heart failure, unspecified; R06.00 Dyspnea, unspecified; E78.5 Hyperlipidemia, unspecified; Z79.899 Other long term (current) drug therapy
CPT/HCPCS: 36415; 80048; 80061; 80076; 83735; 83880; 85027

== ENCOUNTER → 2019-08-30 | Outpatient (CLI) | payer OTHER ==
[2019-08-30 10:48] LABS: CHOLESTEROL 151.97 mg/dL (0-200); TRIGLYCERIDES 251 mg/dL (<150)
[2019-08-30 10:59] LABS: DIRECT LDL 79 mg/dL (<100)
[2019-08-30 11:05] LABS: VLDL CHOLESTEROL 50.2 mg/dL (10-31)
[2019-09-01 14:38] LABS: ALBUMIN 4.4 g/dL (3.5-5.0); ALKALINE PHOSPHATASE 79 U/L (38-126); ASPARTATE AMINO TRANSFERASE 37 U/L (17-59); BILIRUBIN,DIRECT 0.2 mg/dL (0.0-0.4); BILIRUBIN,TOTAL 0.8 mg/dL (0.2-1.3); TOTAL PROTEIN 7.4 g/dL (6.3-8.2)
== END ==
LOC: LAB 09:36
PROVIDERS: ATTEND Internal Medicine Cardiovascular Disease
DX: E78.5 Hyperlipidemia, unspecified (principal); E83.42 Hypomagnesemia; Z79.899 Other long term (current) drug therapy
CPT/HCPCS: 36415; 80061; 80076; 83735